=== PATIENT | male | born 1975 ===

== ENCOUNTER 2024-11-04 10:44 | Day surgery (SDC) | payer OTHER ==
[2024-11-04] MEDS ORDERED: CEFTRIAXONE SODIUM 2,000 MG VIAL ONE (12:10)
[2024-11-04] MEDS ORDERED: DIBUCAINE 30 GM TUBE ONE (12:10)
[2024-11-04] MEDS ORDERED: HEMOSTATIC MATRIX 1 KIT KIT TOP ONE (12:11)
[2024-11-04] MEDS ORDERED: LIDOCAINE HCL 1%/EPINEPHRINE 20ML VIAL IJ ONE (12:11)
[2024-11-04] MEDS ORDERED: BUPIVACAINE HCL/Mpf 0.5% 10ML VIAL ONE (12:11)
[2024-11-04] MEDS ORDERED: POVIDONE-IODINE 118 ML BOTT TOP ONE (12:11)
[2024-11-04] MEDS ORDERED: METRONIDAZOLE/SODIUM CHLORIDE 500 MG/100 ML PIGGYBACK IV ONE (12:11)
[2024-11-04] MEDS ORDERED: BUPIVACAINE HCL/MPF 0.5% 30ML VIAL ONE (12:57)
[2024-11-04] MEDS ORDERED: BUPIVACAINE LIPOSOME/PF 266 MG/20 ML VIAL IJ ONE (12:57)
[2024-11-04] MEDS ORDERED: ONDANSETRON HCL 2 MG/ML VIAL ONE (14:48)
== END 2024-11-04 21:20 | disposition home or self-care (01) ==
LOC: CIR.AMB 10:44
PROVIDERS: ATTEND Colon & Rectal Surgery
DX: K64.2 Third degree hemorrhoids (principal); K64.4 Residual hemorrhoidal skin tags